=== PATIENT | female | born 1950 | race Caucasian/White ===

== ENCOUNTER 2021-03-26 07:57 | Day surgery (SDC) | payer OTHER ==
[~2021-03-26] VITALS: Ht 165.1 cm; Wt 99.0 kg
[~2021-03-26 07:57] MED LIST: CIPROFLOXACIN 0.3% OPHTH SOLUTION 5ML BOTTLE. OD ONE; HYDROmorphone 2 MG/ML VIAL IVP PRN; IV RINGERS,LACTATED 1000ML 1,000 ML IV SCH; LIDOCAINE 2% JELLY 6ML IN APPLICATOR. OD ONE; MORPHINE SULFATE 2 MG/ML VIAL. IVP PRN; PROCHLORPERAZINE 10 MG/2 ML VIAL. IVP PRN; PROPARACAINE 0.5% OPHTH SOLUTION 15ML BOTTLE. OD ONE; fentaNYL PF VIAL 100 MCG/2 ML VIAL IVP PRN
[2021-03-26 08:46] VITALS: BP 163/76
[2021-03-26] MEDS: CYCLOPENTOLATE 1% OPHTH SOLUTION 2ML BOTTLE. OD SCH ×3 (08:46→08:56)
[2021-03-26] MEDS: PHENYLEPHRINE 10% OPHTH SOLUTION 5ML BOTTLE. OD SCH ×3 (08:46→08:56)
[2021-03-26] MEDS ORDERED: ATOR20TA58 PO (08:59)
[2021-03-26] MEDS ORDERED: OMEP40CA7 PO (08:59)
[2021-03-26] MEDS ORDERED: HYDR12.58 PO (09:00)
[2021-03-26] MEDS ORDERED: LOSA25TA54 PO (09:01)
[2021-03-26] MEDS ORDERED: METF10007 PO (09:01)
[2021-03-26] MEDS ORDERED: NEO/POLYMYX/DEXAMETH OPHTH OINTMENT 3.5GM TUBE. ONE (09:03)
[2021-03-26] MEDS ORDERED: METO-239 PO (09:03)
[2021-03-26] MEDS ORDERED: LIDOCAINE 1%/PHENYLEPH 1.5% PF OPHTH 1 ML VIAL. ONE (09:03)
[2021-03-26] MEDS ORDERED: CHONDROIT-SOD-HYALURONATE KIT. ONE (09:04)
[2021-03-26] MEDS ORDERED: TRYPAN BLUE 0.06% INTRAOCULAR 0.5 ML SYRINGE. IO ONE (10:29)
[2021-03-26 11:10] VITALS: BP 146/66
--- NOTE | 2021-03-26 13:28 | OP ---
DATE OF SURGERY: 03/26/2021 PREOPERATIVE DIAGNOSIS: Senile cataract, right eye. POSTOPERATIVE DIAGNOSIS: Senile cataract, right eye. PROCEDURE: Phacoemulsification with posterior chamber lens implant, right eye with use of VisionBlue. ANESTHESIA: Topical with MAC. DESCRIPTION OF PROCEDURE: The patient is dilating and anesthetic drops were applied in an outpatient and the [place] balloon cuff was used for about 10 minutes. The patient was then brought to the operating room, positioned on the table and the right eye was prepped and draped in the usual sterile manner for an intraocular procedure. A lid speculum was placed between the eyelids and the operating microscope brought into position. The eye was first observed. It was noted there was a significant nuclear and cortical spoking cataract. I decided to use VisionBlue to help facilitate the capsulorrhexis. A paracentesis incision was made superior temporally and ____ was injected into the anterior chamber followed by injection of air on a Viscoat plug. VisionBlue was then infiltrated over the anterior capsule for staining. The air was then displaced with Viscoat and the primary 2.4 mm incision was made temporally. I was then able to perform the capsulorrhexis without difficulty. The lens nucleus was hydrodissected and phacoemulsified without difficulty. The cortex was removed with the I/A handpiece. Provisc was used to insufflate the bag and form the anterior chamber and a posterior chamber lens of 19.5 diopter was injected into the bag without difficulty. The lens was rotated to the appropriate axis and the Provisc was aspirated with the I/A handpiece. The eye was pressurized and the wound checked for leaks and there were none. The speculum and drape were removed and Maxitrol ointment instilled in the conjunctival sac. The eye was shielded and the patient was taken to recovery room in satisfactory condition. There were no complications. I will see the patient tomorrow in my office. [facility] [place] DR: Janey TID: [id number]
== END 2021-03-26 11:30 | disposition home or self-care (01) ==
LOC: SURG 07:57
PROVIDERS: ATTEND Ophthalmology
DX: E11.36 Type 2 diabetes mellitus with diabetic cataract (principal); H25.11 Age-related nuclear cataract, right eye; H40.9 Unspecified glaucoma; I10 Essential (primary) hypertension; E78.00 Pure hypercholesterolemia, unspecified; K21.9 Gastro-esophageal reflux disease without esophagitis; M79.7 Fibromyalgia; M19.90 Unspecified osteoarthritis, unspecified site; F41.9 Anxiety disorder, unspecified; F32.9 Major depressive disorder, single episode, unspecified; Z72.89 Other problems related to lifestyle; Z88.2 Allergy status to sulfonamides; Z88.8 Allergy status to other drugs, medicaments and biological substances; Z79.899 Other long term (current) drug therapy; Z90.49 Acquired absence of other specified parts of digestive tract; Z90.710 Acquired absence of both cervix and uterus; Z96.652 Presence of left artificial knee joint
CPT/HCPCS: 66984; 82962; J0171; J3490; V2632